=== PATIENT | male | born 1935 | race Caucasian/White ===

== ENCOUNTER → 2017-04-15 | Outpatient (CLI) | payer MEDICARE, BC ==
[2016-03-12 12:47] VITALS: BP 110/55
[~2017-04-15] MED LIST: CIPRO500 M1 PO; CRESTOR 10MG10 MG PO; DAILY VITAMIN1 EAC3 PO; PLAVIX 75MG TAB75 MG PO; PROTONIX20 M1 PO; RAMIPRIL10 MG PO; TYLENOL 325MG325 MG PO; XARELTO10 MG PO
== END ==
LOC: RAD 16:24
DX: N49.2 Inflammatory disorders of scrotum (principal); N50.3 Cyst of epididymis

== ENCOUNTER → 2017-05-19 | Outpatient (CLI) | payer MEDICARE, BC ==
[2016-03-12 12:47] VITALS: BP 110/55
== END ==
LOC: LAB 14:36
DX: I10 Essential (primary) hypertension (principal); I49.3 Ventricular premature depolarization; I48.92 Unspecified atrial flutter; I47.2 Ventricular tachycardia; R00.1 Bradycardia, unspecified; Z95.0 Presence of cardiac pacemaker

== ENCOUNTER → 2017-05-27 | Outpatient (CLI) | payer MEDICARE, BC ==
[2016-03-12 12:47] VITALS: BP 110/55
== END ==
LOC: RAD 14:54
DX: R06.09 Other forms of dyspnea (principal); R53.83 Other fatigue

== ENCOUNTER → 2017-07-05 | Outpatient (CLI) | payer MEDICARE, BC ==
[2016-03-12 12:47] VITALS: BP 110/55
== END ==
LOC: LAB 09:54
DX: I49.3 Ventricular premature depolarization (principal)

== ENCOUNTER → 2017-07-15 | Outpatient (CLI) | payer MEDICARE, BC ==
[2016-03-12 12:47] VITALS: BP 110/55
[2017-07-15 08:25] LABS: BUN/CREATININE RATIO 28.2 (6.0-26.0); CALCIUM 9.5 mg/dL (8.4-10.2); POTASSIUM 4.7 mmol/L (3.6-5.0)
== END ==
LOC: LAB 08:01
DX: I42.8 Other cardiomyopathies (principal); I10 Essential (primary) hypertension; I49.3 Ventricular premature depolarization; I48.92 Unspecified atrial flutter; I48.2 Chronic atrial fibrillation; Z95.810 Presence of automatic (implantable) cardiac defibrillator

== ENCOUNTER → 2017-09-14 | Outpatient (CLI) | payer MEDICARE, BC ==
[2016-03-12 12:47] VITALS: BP 110/55
[2017-09-14 07:59] LABS: ALBUMIN 4.2 g/dL (3.5-5.0); DIRECT BILIRUBIN 0.5 mg/dL (0.0-0.4); TOTAL BILIRUBIN 1.1 mg/dL (0.2-1.3); TOTAL PROTEIN 7.2 g/dL (6.3-8.2)
== END ==
LOC: LAB 07:28
PROVIDERS: Family Medicine
DX: I10 Essential (primary) hypertension (principal); H61.22 Impacted cerumen, left ear; I48.91 Unspecified atrial fibrillation; M19.071 Primary osteoarthritis, right ankle and foot; I70.0 Atherosclerosis of aorta

== ENCOUNTER → 2018-03-02 | Outpatient (CLI) | payer MEDICARE, BC ==
[2016-03-12 12:47] VITALS: BP 110/55
== END ==
LOC: RAD 09:34
DX: M43.6 Torticollis (principal); M25.512 Pain in left shoulder; M1A.0790 Idiopathic chronic gout, unspecified ankle and foot, without tophus (tophi); I42.0 Dilated cardiomyopathy

== ENCOUNTER 2018-04-06 15:30 | Outpatient (RCR) | payer MEDICARE, BC ==
[2016-03-12 12:47] VITALS: BP 110/55
== END 2018-04-06 16:00 | disposition home or self-care (01) ==
LOC: PT 15:30
DX: M25.512 Pain in left shoulder (principal)
CPT/HCPCS: G8978-GP; G8979-GP

== ENCOUNTER → 2018-05-27 | Outpatient (CLI) | payer MEDICARE, BC ==
[2016-03-12 12:47] VITALS: BP 110/55
[2018-05-27 20:46] LABS: EOS # 0.3 (0.04-0.40); HEMATOCRIT 36.3 % (42.0-52.0); HEMOGLOBIN 12.7 g/dL (13.5-18.0); LYMPH# 1.6 (1.50-4.00); MEAN CELL VOLUME 91 fl (78-100); MEAN CORPUSCULAR HEMOGLOBIN 32 pg (27-31); MEAN CORPUSCULAR HGB CONC 35 g/dL (33-37); MEAN PLATELET VOLUME 10.1 fl (7.4-10.4); MONO # 0.6 (0.20-0.80); NEU # 3.1 (1.40-6.50); PLATELET COUNT 243 K/mm3 (130-400); RED BLOOD COUNT 4.01 M/mm3 (4.20-5.60); RED CELL DISTRIBUTION WIDTH 14.4 % (11.5-14.5); WHITE BLOOD COUNT 5.7 K/mm3 (4.8-10.8)
[2018-05-27 23:50] LABS: ALBUMIN 4.3 g/dL (3.5-5.0); CALCIUM 9.2 mg/dL (8.4-10.2); POTASSIUM 4.5 mmol/L (3.6-5.0); TOTAL BILIRUBIN 1.3 mg/dL (0.2-1.3); TOTAL PROTEIN 6.8 g/dL (6.3-8.2)
[2018-05-31 06:40] LABS: ERYTHROCYTE SEDIMENTATION RATE 14 mm/hr (0-20)
== END ==
LOC: LAB 18:16
PROVIDERS: Internal Medicine
DX: I50.20 Unspecified systolic (congestive) heart failure (principal); D64.9 Anemia, unspecified

== ENCOUNTER → 2018-05-31 | Outpatient (CLI) | payer MEDICARE, BC ==
[2016-03-12 12:47] VITALS: BP 110/55
[2018-05-31 11:54] LABS: CALCIUM 9.1 mg/dL (8.4-10.2); POTASSIUM 4.8 mmol/L (3.6-5.0)
== END ==
LOC: LAB 11:07
PROVIDERS: Internal Medicine
DX: I50.20 Unspecified systolic (congestive) heart failure (principal)

== ENCOUNTER → 2018-08-03 | Outpatient (CLI) | payer MEDICARE, BC ==
[2016-03-12 12:47] VITALS: BP 110/55
== END ==
LOC: RAD 10:34
DX: M47.812 Spondylosis without myelopathy or radiculopathy, cervical region (principal); M48.02 Spinal stenosis, cervical region; M19.012 Primary osteoarthritis, left shoulder; Z95.9 Presence of cardiac and vascular implant and graft, unspecified

== ENCOUNTER → 2018-09-29 | Outpatient (CLI) | payer MEDICARE, BC ==
[2016-03-12 12:47] VITALS: BP 110/55
[2018-09-29 10:24] LABS: ALBUMIN 4.4 g/dL (3.5-5.0); DIRECT BILIRUBIN 0.3 mg/dL (0.0-0.4); TOTAL BILIRUBIN 1.1 mg/dL (0.2-1.3); TOTAL PROTEIN 7.2 g/dL (6.3-8.2)
== END ==
LOC: LAB 09:52
PROVIDERS: Family Medicine
DX: I25.10 Atherosclerotic heart disease of native coronary artery without angina pectoris (principal); I70.0 Atherosclerosis of aorta

== ENCOUNTER → 2018-10-10 | Outpatient (CLI) | payer MEDICARE, BC ==
[2016-03-12 12:47] VITALS: BP 110/55
[2018-10-10 11:47] LABS: EOS # 0.2 (0.04-0.40); EOS % 2.6 % (0.0-4.0); HEMATOCRIT 39.7 % (42.0-52.0); HEMOGLOBIN 13.7 g/dL (13.5-18.0); LYMPH# 1.1 (1.50-4.00); MEAN CELL VOLUME 89 fl (78-100); MEAN CORPUSCULAR HEMOGLOBIN 31 pg (27-31); MEAN CORPUSCULAR HGB CONC 35 g/dL (33-37); MEAN PLATELET VOLUME 9.8 fl (7.4-10.4); MONO # 0.7 (0.20-0.80); NEU # 3.9 (1.40-6.50); PLATELET COUNT 239 K/mm3 (130-400); RED BLOOD COUNT 4.44 M/mm3 (4.20-5.60); RED CELL DISTRIBUTION WIDTH 14.1 % (11.5-14.5); WHITE BLOOD COUNT 5.9 K/mm3 (4.8-10.8)
[2018-10-10 12:49] LABS: ERYTHROCYTE SEDIMENTATION RATE 8 mm/hr (0-20)
== END ==
LOC: LAB 11:33
PROVIDERS: Internal Medicine
DX: I50.20 Unspecified systolic (congestive) heart failure (principal)

== ENCOUNTER → 2018-10-11 | Outpatient (CLI) | payer MEDICARE, BC ==
[2016-03-12 12:47] VITALS: BP 110/55
[2018-10-11 10:08] LABS: ALBUMIN 4.9 g/dL (3.5-5.0); CALCIUM 9.8 mg/dL (8.4-10.2); POTASSIUM 4.7 mmol/L (3.6-5.0); TOTAL BILIRUBIN 2.3 mg/dL (0.2-1.3); TOTAL PROTEIN 8.2 g/dL (6.3-8.2)
== END ==
LOC: RAD 09:18
PROVIDERS: Internal Medicine
DX: I50.20 Unspecified systolic (congestive) heart failure (principal); I25.10 Atherosclerotic heart disease of native coronary artery without angina pectoris; R06.02 Shortness of breath; Z95.9 Presence of cardiac and vascular implant and graft, unspecified

== ENCOUNTER → 2018-10-27 | Outpatient (CLI) | payer MEDICARE, BC ==
[2016-03-12 12:47] VITALS: BP 110/55
[2018-10-27 14:03] LABS: D-DIMER 1.64 mg/L FEU (0.15-0.50)
== END ==
LOC: LAB 13:25 → RAD 13:25
PROVIDERS: Family Medicine
DX: R06.09 Other forms of dyspnea (principal); R79.1 Abnormal coagulation profile
CPT/HCPCS: Q9967

== ENCOUNTER → 2019-02-09 | Outpatient (CLI) | payer MEDICARE, BC ==
[2016-03-12 12:47] VITALS: BP 110/55
[2019-02-09 08:45] LABS: POTASSIUM 4.7 mmol/L (3.5-5.1)
[2019-02-09 09:14] LABS: HEMATOCRIT 40.6 % (42.0-52.0); HEMOGLOBIN 13.5 g/dL (13.5-18.0); MEAN PLATELET VOLUME 9.8 fl (7.4-10.4); RED BLOOD COUNT 4.48 M/mm3 (4.20-5.60); RED CELL DISTRIBUTION WIDTH 14.5 % (11.5-14.5); WHITE BLOOD COUNT 6.4 K/mm3 (4.8-10.8)
== END ==
LOC: LAB 08:05
PROVIDERS: Internal Medicine Cardiovascular Disease
DX: I48.91 Unspecified atrial fibrillation (principal)

== ENCOUNTER 2019-02-27 11:06 | Emergency (ER) | payer MEDICARE, BC ==
[~2019-02-27] VITALS: Ht 188 cm; Wt 95.5 kg
[~2019-02-27 11:06] MED LIST changes: -CLOPIDOGREL PO; -COZAAR25 M1 PO; -LIPITOR20 M2 PO; -MAG-OX 400400 MG/TAB PO; -SOTALOL HCL120 MG PO; -TOPROL XL 25MG25 MG PO
[2019-02-27 12:25] LABS: PROTHROMBIN TIME 10.3 SECONDS (9.0-12.0)
[2019-02-27] MEDS ORDERED: TOPROL XL 25MG25 MG PO ×2 (14:14→14:15)
[2019-02-27] MEDS ORDERED: LIPITOR20 M2 PO (14:14)
[2019-02-27] MEDS ORDERED: COZAAR25 M1 PO (14:15)
[2019-02-27] MEDS ORDERED: CLOPIDOGREL PO (14:15)
[2019-02-27] MEDS ORDERED: MAG-OX 400400 MG/TAB PO (14:16)
[2019-02-27] MEDS ORDERED: SOTALOL HCL120 MG PO (14:16)
[2019-02-27 14:41] LABS: URINE APPEARANCE CLEAR; URINE BILIRUBIN NEGATIVE (NEGATIVE); URINE COLOR YELLOW; URINE GLUCOSE NEGATIVE (NEGATIVE); URINE KETONE 1+ (NEGATIVE); URINE PROTEIN(semi-quant) TRACE mg/dL (NEGATIVE)
[2019-02-27 14:42] LABS: URINE BLOOD NEGATIVE (NEGATIVE); URINE LEUKOCYTE ESTERASE NEGATIVE (NEGATIVE); URINE NITRATE NEGATIVE (NEGATIVE); URINE UROBILINOGEN NORMAL (NORMAL)
[2019-02-27 16:10] VITALS: BP 120/79
== END 2019-02-27 16:10 | disposition home or self-care (01) ==
LOC: ED 11:06
PROVIDERS: Nurse Practitioner Primary Care
DX: I95.1 Orthostatic hypotension (principal); E86.0 Dehydration; I48.91 Unspecified atrial fibrillation; I25.10 Atherosclerotic heart disease of native coronary artery without angina pectoris; I11.0 Hypertensive heart disease with heart failure; I50.9 Heart failure, unspecified; Z86.73 Personal history of transient ischemic attack (TIA), and cerebral infarction without residual deficits; Z86.19 Personal history of other infectious and parasitic diseases; Z98.890 Other specified postprocedural states; Z95.0 Presence of cardiac pacemaker; Z79.02 Long term (current) use of antithrombotics/antiplatelets; Z79.82 Long term (current) use of aspirin
CPT/HCPCS: J7030; Q9967

== ENCOUNTER → 2019-02-27 | Outpatient (CLI) | payer MEDICARE, BC ==
[~2019-02-27] VITALS: Ht 190.5 cm; Wt 95.5 kg
[~2019-02-27] MED LIST changes: +CLOPIDOGREL PO; +COZAAR25 M1 PO; +LIPITOR20 M2 PO; +MAG-OX 400400 MG/TAB PO; +SOTALOL HCL120 MG PO; +TOPROL XL 25MG25 MG PO
[2019-02-27 09:13] LABS: EOS # 0.2 (0.04-0.40); EOS % 2.3 % (0.0-4.0); HEMATOCRIT 40.3 % (42.0-52.0); HEMOGLOBIN 13.4 g/dL (13.5-18.0); LYMPH# 1.2 (1.50-4.00); MEAN CELL VOLUME 89 fl (78-100); MEAN CORPUSCULAR HEMOGLOBIN 30 pg (27-31); MEAN CORPUSCULAR HGB CONC 33 g/dL (33-37); MEAN PLATELET VOLUME 9.9 fl (7.4-10.4); MONO # 0.8 (0.20-0.80); NEU # 4.4 (1.40-6.50); PLATELET COUNT 266 K/mm3 (130-400); RED BLOOD COUNT 4.53 M/mm3 (4.20-5.60); RED CELL DISTRIBUTION WIDTH 14.4 % (11.5-14.5); WHITE BLOOD COUNT 6.5 K/mm3 (4.8-10.8)
[2019-02-27 09:30] LABS: POTASSIUM 4.4 mmol/L (3.5-5.1); TOTAL BILIRUBIN 1.8 mg/dL (0.2-1.2); TOTAL PROTEIN 6.9 g/dL (6.2-8.1)
[2019-02-27 10:39] VITALS: BP 90/58
== END ==
LOC: RAD 08:31 → LAB 08:31 → AMSURD 08:31
PROVIDERS: Family Medicine
DX: M48.02 Spinal stenosis, cervical region (principal); M47.812 Spondylosis without myelopathy or radiculopathy, cervical region; I70.90 Unspecified atherosclerosis; M89.8X9 Other specified disorders of bone, unspecified site; I50.20 Unspecified systolic (congestive) heart failure; I25.10 Atherosclerotic heart disease of native coronary artery without angina pectoris; Z95.0 Presence of cardiac pacemaker

== ENCOUNTER 2019-04-26 08:00 | Outpatient (RCR) | payer MEDICARE, BC ==
[~2019-04-26 08:00] MED LIST changes: +CLOPIDOGREL PO; +COZAAR25 M1 PO; +LIPITOR20 M2 PO; +MAG-OX 400400 MG/TAB PO; +SOTALOL HCL120 MG PO; +TOPROL XL 25MG25 MG PO
== END 2019-04-26 08:30 | disposition still patient (30) ==
LOC: PT 08:00
DX: M54.6 Pain in thoracic spine (principal); M54.2 Cervicalgia

== ENCOUNTER → 2019-06-09 | Outpatient (CLI) | payer MEDICARE, BC | LOC: RAD 13:13 | DX: R05 Cough (principal); R06.2 Wheezing ==

== ENCOUNTER → 2019-10-10 | Outpatient (CLI) | payer MEDICARE, BC ==
[2019-10-10 09:37] LABS: HEMATOCRIT 45.1 % (42.0-52.0); HEMOGLOBIN 15.1 g/dL (13.5-18.0); MEAN PLATELET VOLUME 9.8 fl (7.4-10.4); RED CELL DISTRIBUTION WIDTH 14.6 % (11.5-14.5)
[2019-10-10 09:49] LABS: POTASSIUM 4.8 mmol/L (3.5-5.1)
[2019-10-10 09:50] LABS: ALBUMIN 4.3 g/dL (3.4-4.8)
[2019-10-10 09:51] LABS: CALCIUM 9.9 mg/dL (8.3-10.5)
[2019-10-10 09:52] LABS: TOTAL PROTEIN 7.2 g/dL (6.2-8.1)
== END ==
LOC: LAB 09:09
PROVIDERS: Family Medicine
DX: I42.0 Dilated cardiomyopathy (principal); I70.0 Atherosclerosis of aorta

== ENCOUNTER → 2020-02-12 | Outpatient (CLI) | payer MEDICARE, BC ==
[2020-02-12 15:09] LABS: POTASSIUM 4.7 mmol/L (3.5-5.1)
[2020-02-12 15:10] LABS: CALCIUM 9.2 mg/dL (8.3-10.5)
== END ==
LOC: LAB 14:26
PROVIDERS: Internal Medicine Cardiovascular Disease
DX: I48.4 Atypical atrial flutter (principal)

== ENCOUNTER → 2020-02-26 | Outpatient (CLI) | payer MEDICARE, BC | LOC: LAB 09:54 | DX: Z01.818 Encounter for other preprocedural examination (principal); Z11.59 Encounter for screening for other viral diseases; I48.4 Atypical atrial flutter; I10 Essential (primary) hypertension; I47.2 Ventricular tachycardia ==

== ENCOUNTER → 2020-03-18 | Outpatient (CLI) | payer MEDICARE, BC ==
[2020-03-18 09:35] LABS: ALBUMIN 4.4 g/dL (3.4-4.8)
[2020-03-18 09:38] LABS: TOTAL PROTEIN 7.1 g/dL (6.2-8.1)
[2020-03-18 09:44] LABS: DIRECT BILIRUBIN 0.4 mg/dL (0.0-0.5)
== END ==
LOC: LAB 09:02
PROVIDERS: Family Medicine
DX: I48.91 Unspecified atrial fibrillation (principal); I49.3 Ventricular premature depolarization; Z95.810 Presence of automatic (implantable) cardiac defibrillator

== ENCOUNTER 2020-05-09 08:45 | Outpatient (RCR) | payer MEDICARE, BC | END 2020-05-21 | disposition still patient (30) | LOC: PT | DX: S16.1XXA Strain of muscle, fascia and tendon at neck level, initial encounter (principal); S29.012A Strain of muscle and tendon of back wall of thorax, initial encounter; M54.2 Cervicalgia ==

== ENCOUNTER 2020-09-13 10:02 | Emergency (ER) | payer MEDICARE, BC ==
[2020-09-13 11:24] LABS: HEMATOCRIT 36.9 % (42.0-52.0); HEMOGLOBIN 12.4 g/dL (13.5-18.0); MEAN CELL VOLUME 89 fl (78-100); MEAN CORPUSCULAR HEMOGLOBIN 30 pg (27-31); MEAN CORPUSCULAR HGB CONC 34 g/dL (33-37); MEAN PLATELET VOLUME 9.1 fl (7.4-10.4); PLATELET COUNT 141 K/mm3 (130-400); RED BLOOD COUNT 4.13 M/mm3 (4.20-5.60); RED CELL DISTRIBUTION WIDTH 14.7 % (11.5-14.5); WHITE BLOOD COUNT 2.9 K/mm3 (4.8-10.8)
[2020-09-13 11:44] LABS: POTASSIUM 4.5 mmol/L (3.5-5.1); SODIUM 131 mmol/L (136-145)
[2020-09-13 11:45] LABS: ALBUMIN 4.1 g/dL (3.4-4.8); CALCIUM 8.8 mg/dL (8.3-10.5)
[2020-09-13 11:47] LABS: GLUCOSE 93 mg/dL (75-110); TOTAL PROTEIN 6.7 g/dL (6.2-8.1)
[2020-09-13 11:48] LABS: CARBON DIOXIDE 22 mmol/L (23-31)
[2020-09-13 11:52] LABS: AST-SGOT 26 U/L (5-34)
[2020-09-13 11:54] LABS: ALT/SGPT 28 U/L (0-55)
[2020-09-13 11:56] LABS: BAND 3 % (0-10); D-DIMER 1.63 mg/L FEU (0.15-0.50); LYMPHOCYTE 14 % (20-51); MONOCYTE 12 % (3-10); NEUTROPHILS 70 % (42-75); OVALOCYTES 1+
[2020-09-13 12:05] LABS: TROPONIN-I < 0.03 ng/mL (<0.030)
[2020-09-13 12:27] LABS: ERYTHROCYTE SEDIMENTATION RATE 16 mm/hr (0-20)
[2020-09-13 13:34] LABS: URINE APPEARANCE CLEAR; URINE COLOR YELLOW; URINE PROTEIN(semi-quant) TRACE mg/dL (NEGATIVE)
[2020-09-13 13:35] LABS: URINE BILIRUBIN NEGATIVE (NEGATIVE); URINE BLOOD NEGATIVE (NEGATIVE); URINE GLUCOSE NEGATIVE (NEGATIVE); URINE KETONE NORM (NEGATIVE); URINE WBC 0-1 /hpf (0-3)
[2020-09-13 13:36] LABS: URINE MUCUS PRESENT (NOT PRESENT)
[2020-09-13 13:37] LABS: URINE LEUKOCYTE ESTERASE NEGATIVE (NEGATIVE); URINE NITRATE NEGATIVE (NEGATIVE); URINE UROBILINOGEN NORMAL (NORMAL)
[2020-09-13 15:40] VITALS: BP 136/67
== END 2020-09-13 15:15 | disposition home or self-care (01) ==
LOC: ED 10:02
PROVIDERS: Physician Assistant
DX: U07.1 COVID-19 (principal); I48.91 Unspecified atrial fibrillation; I50.9 Heart failure, unspecified; E78.5 Hyperlipidemia, unspecified; Z95.0 Presence of cardiac pacemaker; Z79.02 Long term (current) use of antithrombotics/antiplatelets
CPT/HCPCS: Q9967

== ENCOUNTER → 2020-10-11 | Outpatient (CLI) | payer MEDICARE, BC ==
[2020-09-13 15:40] VITALS: BP 136/67
[2020-10-11 11:12] LABS: ALBUMIN 4.2 g/dL (3.4-4.8)
[2020-10-11 11:17] LABS: TOTAL BILIRUBIN 0.6 mg/dL (0.2-1.2)
[2020-10-11 11:20] LABS: DIRECT BILIRUBIN 0.2 mg/dL (0.0-0.5)
== END ==
LOC: LAB 10:45
PROVIDERS: Family Medicine
DX: E78.00 Pure hypercholesterolemia, unspecified (principal)

== ENCOUNTER → 2021-01-23 | Outpatient (CLI) | payer MEDICARE, BC ==
[2021-01-23 07:50] LABS: ALBUMIN 4.3 g/dL (3.4-4.8)
[2021-01-23 07:51] LABS: POTASSIUM 4.5 mmol/L (3.5-5.1)
[2021-01-23 07:52] LABS: CALCIUM 9.2 mg/dL (8.3-10.5)
[2021-01-23 07:53] LABS: TOTAL PROTEIN 7.1 g/dL (6.2-8.1)
[2021-01-23 07:55] LABS: TOTAL BILIRUBIN 1.2 mg/dL (0.2-1.2)
[2021-01-23 08:00] LABS: MAGNESIUM 2.06 mg/dL (1.60-2.60)
== END ==
LOC: LAB 07:27
PROVIDERS: Family Medicine
DX: I10 Essential (primary) hypertension (principal)

== ENCOUNTER → 2021-01-29 | Outpatient (CLI) | payer MEDICARE, BC | LOC: LAB 09:26 | DX: Z12.5 Encounter for screening for malignant neoplasm of prostate (principal); Z80.42 Family history of malignant neoplasm of prostate ==

== ENCOUNTER → 2021-01-30 | Outpatient (CLI) | payer MEDICARE, BC | LOC: MAMMO 10:00 | DX: Z00.00 Encounter for general adult medical examination without abnormal findings (principal); Z13.820 Encounter for screening for osteoporosis; Z86.010 Personal history of colon polyps ==

== ENCOUNTER → 2021-02-13 | Day surgery (SDC) | payer MEDICARE, BC | LOC: MSO 07:26 | DX: Z12.11 Encounter for screening for malignant neoplasm of colon (principal); D12.2 Benign neoplasm of ascending colon; D12.0 Benign neoplasm of cecum; D12.3 Benign neoplasm of transverse colon; K57.30 Diverticulosis of large intestine without perforation or abscess without bleeding; I10 Essential (primary) hypertension; I48.91 Unspecified atrial fibrillation; Z95.0 Presence of cardiac pacemaker; Z79.899 Other long term (current) drug therapy | CPT/HCPCS: 00811; J2704; J7120 ==

== ENCOUNTER → 2021-04-22 | Outpatient (CLI) | payer MEDICARE, BC ==
[2021-04-22 11:10] LABS: ALBUMIN 4.5 g/dL (3.4-4.8); POTASSIUM 4.5 mmol/L (3.5-5.1)
[2021-04-22 11:11] LABS: CALCIUM 9.7 mg/dL (8.3-10.5)
[2021-04-22 11:12] LABS: TOTAL PROTEIN 7.1 g/dL (6.2-8.1)
[2021-04-22 11:14] LABS: TOTAL BILIRUBIN 1.8 mg/dL (0.2-1.2)
[2021-04-22 11:28] LABS: D-DIMER 0.97 mg/L FEU (0.15-0.50)
[2021-04-22 11:39] LABS: ERYTHROCYTE SEDIMENTATION RATE 10 mm/hr (0-20)
[2021-04-22 13:56] LABS: BASO # 0.04 (0.02-0.10); EOS # 0.06 (0.04-0.40); EOS % 1.1 % (0.0-4.0); HEMATOCRIT 38.6 % (42.0-52.0); HEMOGLOBIN 13.5 g/dL (13.5-18.0); LYMPH# 0.99 (1.50-4.00); MEAN CELL VOLUME 88 fl (78-100); MEAN CORPUSCULAR HEMOGLOBIN 31 pg (27-31); MEAN CORPUSCULAR HGB CONC 35 g/dL (33-37); MONO # 0.65 (0.20-0.80); NEU # 3.59 (1.40-6.50); PLATELET COUNT 205 K/mm3 (130-400); RED BLOOD COUNT 4.39 M/mm3 (4.20-5.60); RED CELL DISTRIBUTION WIDTH 13.8 % (11.5-14.5); WHITE BLOOD COUNT 5.4 K/mm3 (4.8-10.8)
== END ==
LOC: LAB 10:25
PROVIDERS: Internal Medicine
DX: I51.7 Cardiomegaly (principal); Z95.0 Presence of cardiac pacemaker; Z86.79 Personal history of other diseases of the circulatory system
CPT/HCPCS: Q9967

== ENCOUNTER → 2021-04-28 | Outpatient (CLI) | payer MEDICARE, BC ==
[2021-04-28 14:27] LABS: POTASSIUM 4.6 mmol/L (3.5-5.1)
[2021-04-28 14:28] LABS: CALCIUM 9.5 mg/dL (8.3-10.5)
== END ==
LOC: LAB 13:56
PROVIDERS: Family Medicine
DX: E87.1 Hypo-osmolality and hyponatremia (principal); R06.00 Dyspnea, unspecified; Z86.79 Personal history of other diseases of the circulatory system

== ENCOUNTER → 2021-06-24 | Outpatient (CLI) | payer MEDICARE, BC ==
[2021-06-24 11:51] LABS: POTASSIUM 4.9 mmol/L (3.5-5.1)
[2021-06-24 11:52] LABS: CALCIUM 9.9 mg/dL (8.3-10.5)
[2021-06-24 11:59] LABS: MAGNESIUM 1.99 mg/dL (1.60-2.60)
== END ==
LOC: AMSURD 11:10
PROVIDERS: Internal Medicine Cardiovascular Disease
DX: I49.3 Ventricular premature depolarization (principal); I47.2 Ventricular tachycardia; I48.92 Unspecified atrial flutter; Z95.810 Presence of automatic (implantable) cardiac defibrillator

== ENCOUNTER → 2021-06-26 | Outpatient (CLI) | payer MEDICARE, BC ==
[2021-06-26 11:15] LABS: POTASSIUM 4.8 mmol/L (3.5-5.1)
[2021-06-26 11:16] LABS: CALCIUM 9.7 mg/dL (8.3-10.5)
[2021-06-26 11:23] LABS: MAGNESIUM 1.93 mg/dL (1.60-2.60)
== END ==
LOC: LAB 10:20 → AMSURD 10:20
DX: I49.3 Ventricular premature depolarization (principal); I47.2 Ventricular tachycardia; I48.92 Unspecified atrial flutter; Z95.810 Presence of automatic (implantable) cardiac defibrillator

== ENCOUNTER 2021-09-25 13:41 | Outpatient (RCR) | payer MEDICARE, BC | END 2021-09-26 23:59 | LOC: PT 13:41 | DX: M62.81 Muscle weakness (generalized) (principal) ==

== ENCOUNTER → 2021-10-21 | Outpatient (CLI) | payer MEDICARE, BC ==
[2021-10-21 09:04] LABS: ALBUMIN 4.2 g/dL (3.4-4.8)
[2021-10-21 09:09] LABS: TOTAL BILIRUBIN 1.2 mg/dL (0.2-1.2)
[2021-10-21 09:13] LABS: DIRECT BILIRUBIN 0.4 mg/dL (0.0-0.5)
== END ==
LOC: LAB 08:37
PROVIDERS: Family Medicine
DX: I70.0 Atherosclerosis of aorta (principal)

== ENCOUNTER 2021-10-28 09:27 | Outpatient (RCR) | payer MEDICARE, BC | END 2021-11-24 | disposition home or self-care (01) | LOC: PT | DX: M62.81 Muscle weakness (generalized) (principal) ==

== ENCOUNTER → 2021-11-06 | Outpatient (CLI) | payer MEDICARE, BC | LOC: LAB 08:14 | DX: Z20.822 Contact with and (suspected) exposure to COVID-19 (principal) ==

== ENCOUNTER → 2021-11-13 | Outpatient (CLI) | payer MEDICARE, BC | LOC: LAB 13:34 | DX: Z20.822 Contact with and (suspected) exposure to COVID-19 (principal) ==

== ENCOUNTER → 2022-01-30 | Outpatient (CLI) | payer MEDICARE, BC ==
[2022-01-30 09:48] LABS: BASO # 0.04 K/mm3 (0.02-0.10); EOS # 0.34 K/mm3 (0.04-0.40); HEMATOCRIT 37.5 % (42.0-52.0); HEMOGLOBIN 12.5 g/dL (13.5-18.0); LYMPH# 1.08 K/mm3 (1.50-4.00); MEAN CELL VOLUME 94 fl (78-100); MEAN CORPUSCULAR HEMOGLOBIN 31 pg (27-31); MEAN CORPUSCULAR HGB CONC 33 g/dL (33-37); MEAN PLATELET VOLUME 9.6 fl (7.4-10.4); MONO # 0.65 K/mm3 (0.20-0.80); NEU # 3.57 K/mm3 (1.40-6.50); PLATELET COUNT 184 K/mm3 (130-400); RED CELL DISTRIBUTION WIDTH 14.1 % (11.5-14.5); WHITE BLOOD COUNT 5.7 K/mm3 (4.8-10.8)
[2022-01-30 09:54] LABS: ALBUMIN 4.2 g/dL (3.4-4.8); POTASSIUM 4.5 mmol/L (3.5-5.1)
[2022-01-30 09:55] LABS: CALCIUM 9.3 mg/dL (8.3-10.5)
[2022-01-30 09:56] LABS: TOTAL PROTEIN 6.9 g/dL (6.2-8.1)
[2022-01-30 10:03] LABS: MAGNESIUM 1.98 mg/dL (1.60-2.60)
== END ==
LOC: LAB 09:05
PROVIDERS: Family Medicine
DX: Z00.00 Encounter for general adult medical examination without abnormal findings (principal); M41.86 Other forms of scoliosis, lumbar region; M51.36 Other intervertebral disc degeneration, lumbar region; I70.0 Atherosclerosis of aorta; I42.9 Cardiomyopathy, unspecified; M1A.00X0 Idiopathic chronic gout, unspecified site, without tophus (tophi); E78.00 Pure hypercholesterolemia, unspecified; I10 Essential (primary) hypertension; M54.59 Other low back pain; Z98.890 Other specified postprocedural states; Z86.79 Personal history of other diseases of the circulatory system

== ENCOUNTER → 2022-02-03 | Outpatient (CLI) | payer MEDICARE, BC | LOC: LAB 09:28 | DX: Z13.9 Encounter for screening, unspecified (principal); D64.9 Anemia, unspecified ==

== ENCOUNTER → 2022-03-27 | Outpatient (CLI) | payer MEDICARE, BC | LOC: LAB 11:43 | DX: M19.072 Primary osteoarthritis, left ankle and foot (principal); M19.071 Primary osteoarthritis, right ankle and foot ==

== ENCOUNTER 2022-05-26 09:06 | Outpatient (RCR) | payer MEDICARE, BC | END 2022-05-27 | LOC: PT | DX: M51.36 Other intervertebral disc degeneration, lumbar region (principal); M48.061 Spinal stenosis, lumbar region without neurogenic claudication ==

== ENCOUNTER → 2022-05-27 | Outpatient (CLI) | payer MEDICARE, BC | LOC: LAB 11:44 | DX: M1A.0710 Idiopathic chronic gout, right ankle and foot, without tophus (tophi) (principal); M54.9 Dorsalgia, unspecified ==

== ENCOUNTER 2022-05-28 09:11 | Outpatient (RCR) | payer MEDICARE, BC | END 2022-06-26 | disposition still patient (30) | LOC: PT | DX: M51.36 Other intervertebral disc degeneration, lumbar region (principal); M48.061 Spinal stenosis, lumbar region without neurogenic claudication ==

== ENCOUNTER → 2022-12-16 | Outpatient (CLI) | payer MEDICARE, BC ==
[2022-12-16 15:24] LABS: BASO # 0.03 K/mm3 (0.02-0.10); EOS # 0.19 K/mm3 (0.04-0.40); EOS % 3.4 % (0.0-4.0); HEMATOCRIT 37.8 % (42.0-52.0); HEMOGLOBIN 12.5 g/dL (13.5-18.0); LYMPH# 1.51 K/mm3 (1.50-4.00); MEAN CELL VOLUME 94 fl (78-100); MEAN CORPUSCULAR HEMOGLOBIN 31 pg (27-31); MEAN CORPUSCULAR HGB CONC 33 g/dL (33-37); MEAN PLATELET VOLUME 9.3 fl (7.4-10.4); MONO # 0.55 K/mm3 (0.20-0.80); PLATELET COUNT 214 K/mm3 (130-400); RED BLOOD COUNT 4.04 M/mm3 (4.20-5.60); RED CELL DISTRIBUTION WIDTH 14.2 % (11.5-14.5); WHITE BLOOD COUNT 5.6 K/mm3 (4.8-10.8)
[2022-12-16 15:30] LABS: ALBUMIN 4.2 g/dL (3.4-4.8); POTASSIUM 4.3 mmol/L (3.5-5.1)
[2022-12-16 15:31] LABS: CALCIUM 9.8 mg/dL (8.3-10.5)
[2022-12-16 15:32] LABS: TOTAL PROTEIN 6.5 g/dL (6.2-8.1)
[2022-12-16 15:34] LABS: TOTAL BILIRUBIN 0.8 mg/dL (0.2-1.2)
[2022-12-16 22:52] LABS: T3 FREE <1.1 pg/mL (1.7-3.7); TESTOSTERONE 174 ng/dL (221-716)
== END ==
LOC: LAB 14:59
PROVIDERS: Family Medicine
DX: R53.83 Other fatigue (principal)

== ENCOUNTER → 2023-01-13 | Outpatient (CLI) | payer MEDICARE, BC | LOC: LAB 10:43 | DX: Z12.5 Encounter for screening for malignant neoplasm of prostate (principal); I48.91 Unspecified atrial fibrillation ==

== ENCOUNTER → 2023-01-14 | Outpatient (CLI) | payer MEDICARE, BC | LOC: RAD 11:42 | DX: M51.35 Other intervertebral disc degeneration, thoracolumbar region (principal); M41.85 Other forms of scoliosis, thoracolumbar region; R10.84 Generalized abdominal pain ==

== ENCOUNTER 2023-07-08 15:59 | Emergency (ER) | payer MEDICARE, BC ==
[~2023-07-08] VITALS: Ht 188 cm; Wt 100.0 kg
[2023-07-08] MEDS ORDERED: SENNA-GEN8.6 MG (16:07)
[2023-07-08] MEDS ORDERED: ALLOPURINOL300 M1 PO (16:07)
[2023-07-08 16:43] VITALS: BP 134/91
== END 2023-07-08 16:48 | disposition home or self-care (01) ==
LOC: ED 15:59
DX: R04.0 Epistaxis (principal)

== ENCOUNTER → 2023-10-25 | Outpatient (CLI) | payer MEDICARE, BC ==
[~2023-10-25] MED LIST changes: +ALLOPURINOL300 M1 PO; +SENNA-GEN8.6 MG
[2023-10-25 08:41] LABS: BASO # 0.02 K/mm3 (0.02-0.10); EOS # 0.26 K/mm3 (0.04-0.40); EOS % 4.8 % (0.0-4.0); HEMATOCRIT 39.2 % (42.0-52.0); HEMOGLOBIN 13.2 g/dL (13.5-18.0); LYMPH# 1.15 K/mm3 (1.50-4.00); MEAN CELL VOLUME 94 fl (78-100); MEAN CORPUSCULAR HEMOGLOBIN 32 pg (27-31); MEAN CORPUSCULAR HGB CONC 34 g/dL (33-37); MEAN PLATELET VOLUME 9.2 fl (7.4-10.4); MONO # 0.53 K/mm3 (0.20-0.80); NEU # 3.42 K/mm3 (1.40-6.50); PLATELET COUNT 227 K/mm3 (130-400); RED BLOOD COUNT 4.18 M/mm3 (4.20-5.60); RED CELL DISTRIBUTION WIDTH 14.4 % (11.5-14.5); WHITE BLOOD COUNT 5.4 K/mm3 (4.8-10.8)
[2023-10-25 08:47] LABS: ALBUMIN 4.3 g/dL (3.4-4.8)
[2023-10-25 08:48] LABS: CALCIUM 9.2 mg/dL (8.3-10.5)
[2023-10-25 08:50] LABS: TOTAL PROTEIN 6.8 g/dL (6.2-8.1)
[2023-10-25 08:51] LABS: TOTAL BILIRUBIN 0.63 mg/dL (0.2-1.2)
[2023-10-25 09:23] LABS: URINE APPEARANCE CLEAR (CLEAR); URINE COLOR YELLOW (YELLOW)
[2023-10-25 09:24] LABS: PH-URINE 5.5 (5.0 - 8.0); URINE BILIRUBIN NEGATIVE (NEGATIVE); URINE BLOOD NEGATIVE (NEGATIVE); URINE GLUCOSE NEGATIVE (NEGATIVE); URINE KETONE NEGATIVE (NEGATIVE); URINE LEUKOCYTE ESTERASE NEGATIVE (NEGATIVE); URINE NITRATE NEGATIVE (NEGATIVE); URINE PROTEIN(semi-quant) NEGATIVE (NEGATIVE); URINE WBC 0-1 /hpf (0-3)
[2023-10-25 09:25] LABS: URINE MUCUS PRESENT (NOT PRESENT)
== END ==
LOC: LAB 08:24
DX: I42.8 Other cardiomyopathies (principal); I10 Essential (primary) hypertension; R79.9 Abnormal finding of blood chemistry, unspecified

== ENCOUNTER → 2023-11-17 | Outpatient (CLI) | payer MEDICARE, BC ==
[2023-11-17 09:06] LABS: CALCIUM 9.8 mg/dL (8.3-10.5)
== END ==
LOC: LAB 08:43
PROVIDERS: Family Medicine
DX: I10 Essential (primary) hypertension (principal)

== ENCOUNTER → 2024-04-01 | Outpatient (CLI) | payer MEDICARE, BC ==
[2024-04-01 07:52] LABS: BASO # 0.03 K/mm3 (0.02-0.10); EOS # 0.26 K/mm3 (0.04-0.40); EOS % 4.5 % (0.0-4.0); HEMATOCRIT 41.4 % (42.0-52.0); HEMOGLOBIN 13.7 g/dL (13.5-18.0); LYMPH# 1.21 K/mm3 (1.50-4.00); MEAN CELL VOLUME 95 fl (78-100); MEAN CORPUSCULAR HEMOGLOBIN 31 pg (27-31); MEAN CORPUSCULAR HGB CONC 33 g/dL (33-37); MEAN PLATELET VOLUME 9.1 fl (7.4-10.4); MONO # 0.52 K/mm3 (0.20-0.80); NEU # 3.68 K/mm3 (1.40-6.50); PLATELET COUNT 205 K/mm3 (130-400); RED BLOOD COUNT 4.38 M/mm3 (4.20-5.60); RED CELL DISTRIBUTION WIDTH 14.1 % (11.5-14.5); WHITE BLOOD COUNT 5.7 K/mm3 (4.8-10.8)
[2024-04-01 08:01] LABS: ALBUMIN 4.2 g/dL (3.4-4.8)
[2024-04-01 08:02] LABS: CALCIUM 9.9 mg/dL (8.3-10.5)
[2024-04-01 08:03] LABS: TOTAL PROTEIN 6.5 g/dL (6.2-8.1)
[2024-04-01 08:05] LABS: TOTAL BILIRUBIN 1.6 mg/dL (0.2-1.2)
== END ==
LOC: LAB 07:36
PROVIDERS: Internal Medicine
DX: I50.42 Chronic combined systolic (congestive) and diastolic (congestive) heart failure (principal)

== ENCOUNTER → 2024-04-10 | Outpatient (CLI) | payer MEDICARE, BC | LOC: LAB 08:29 | DX: Z12.5 Encounter for screening for malignant neoplasm of prostate (principal); E78.2 Mixed hyperlipidemia ==

== ENCOUNTER → 2024-05-16 | Outpatient (CLI) | payer MEDICARE, BC ==
[2024-05-16 12:01] LABS: BASO # 0.02 K/mm3 (0.02-0.10); EOS # 0.23 K/mm3 (0.04-0.40); EOS % 3.5 % (0.0-4.0); HEMATOCRIT 38.9 % (42.0-52.0); HEMOGLOBIN 12.9 g/dL (13.5-18.0); LYMPH# 1.24 K/mm3 (1.50-4.00); MEAN CELL VOLUME 95 fl (78-100); MEAN CORPUSCULAR HEMOGLOBIN 31 pg (27-31); MEAN CORPUSCULAR HGB CONC 33 g/dL (33-37); MEAN PLATELET VOLUME 9.3 fl (7.4-10.4); MONO # 0.69 K/mm3 (0.20-0.80); NEU # 4.47 K/mm3 (1.40-6.50); PLATELET COUNT 210 K/mm3 (130-400); RED BLOOD COUNT 4.11 M/mm3 (4.20-5.60); RED CELL DISTRIBUTION WIDTH 14.6 % (11.5-14.5); WHITE BLOOD COUNT 6.7 K/mm3 (4.8-10.8)
[2024-05-16 12:07] LABS: CALCIUM 9.7 mg/dL (8.3-10.5)
== END ==
LOC: LAB 11:48
PROVIDERS: Family Medicine
DX: D64.9 Anemia, unspecified (principal); E87.1 Hypo-osmolality and hyponatremia

== ENCOUNTER 2024-06-09 12:44 | Observation (INO) | payer MEDICARE, BC ==
[~2024-06-09] VITALS: Ht 188 cm; Wt 97.5 kg
[2024-06-09 13:44] LABS: BASO # 0.01 K/mm3 (0.02-0.10); EOS # 0.23 K/mm3 (0.04-0.40); EOS % 3.6 % (0.0-4.0); HEMATOCRIT 40.2 % (42.0-52.0); HEMOGLOBIN 13.5 g/dL (13.5-18.0); MEAN CELL VOLUME 94 fl (78-100); MEAN CORPUSCULAR HEMOGLOBIN 32 pg (27-31); MEAN CORPUSCULAR HGB CONC 34 g/dL (33-37); MEAN PLATELET VOLUME 9.5 fl (7.4-10.4); MONO # 0.55 K/mm3 (0.20-0.80); NEU # 4.39 K/mm3 (1.40-6.50); PLATELET COUNT 231 K/mm3 (130-400); RED BLOOD COUNT 4.27 M/mm3 (4.20-5.60); RED CELL DISTRIBUTION WIDTH 14.4 % (11.5-14.5); WHITE BLOOD COUNT 6.4 K/mm3 (4.8-10.8)
[2024-06-09 13:49] LABS: ALBUMIN 4.3 g/dL (3.4-4.8)
[2024-06-09 13:50] LABS: SODIUM 138 mmol/L (136-145)
[2024-06-09 13:51] LABS: CALCIUM 9.8 mg/dL (8.3-10.5)
[2024-06-09 13:52] LABS: GLUCOSE 106 mg/dL (75-110)
[2024-06-09 13:53] LABS: CARBON DIOXIDE 19 mmol/L (23-31)
[2024-06-09 13:57] LABS: AST-SGOT 20 U/L (5-34); PROTHROMBIN TIME 10.2 SECONDS (9.0-12.0)
[2024-06-09 13:58] LABS: ALT/SGPT 20 U/L (0-55)
[2024-06-09 14:05] LABS: TROPONIN-I < 0.030 ng/mL (0.00-0.033)
[2024-06-09] MEDS ORDERED: Iohexol 350 - 100 ML VIAL IV ONE (14:08)
[2024-06-09] MEDS ORDERED: ALDACTONE 25MG25 MG PO (14:12)
[2024-06-09] MEDS ORDERED: INTRINSI B12-F1 EACH PO (14:13)
[2024-06-09] MEDS ORDERED: OSTERA TABLET1 EACH PO (14:13)
[2024-06-09] MEDS ORDERED: COZAAR25 M1 PO (14:14)
[2024-06-09] MEDS ORDERED: Clopidogrel 75 MG TAB PO ONE (17:00)
[2024-06-09] MEDS ORDERED: Ondansetron 4 MG/2 ML VIAL IV PRN (17:45)
[2024-06-09] MEDS ORDERED: Acetaminophen 500 MG TAB PO PRN (17:45)
[2024-06-09 17:56] VITALS: BP 122/76
[2024-06-09] MEDS ORDERED: NS 1,000 ML IV SCH (18:00)
[2024-06-09 20:50] VITALS: BP 120/81
[2024-06-09] MEDS ORDERED: Sennosides/Docusate 8.6-50 MG TAB PO SCH (21:00)
[2024-06-09] MEDS ORDERED: Losartan 25 MG TAB PO SCH (21:00)
[2024-06-09] MEDS ORDERED: Magnesium Oxide 400 MG TAB PO SCH (21:00)
[2024-06-10 02:23] VITALS: BP 134/82
[2024-06-10 06:07] VITALS: BP 136/88
[2024-06-10 07:26] LABS: BASO # 0.01 K/mm3 (0.02-0.10); EOS # 0.23 K/mm3 (0.04-0.40); EOS % 4.3 % (0.0-4.0); HEMATOCRIT 35.5 % (42.0-52.0); LYMPH# 1.27 K/mm3 (1.50-4.00); MEAN CELL VOLUME 94 fl (78-100); MEAN CORPUSCULAR HEMOGLOBIN 32 pg (27-31); MEAN CORPUSCULAR HGB CONC 34 g/dL (33-37); MEAN PLATELET VOLUME 9.5 fl (7.4-10.4); MONO # 0.48 K/mm3 (0.20-0.80); NEU # 3.39 K/mm3 (1.40-6.50); PLATELET COUNT 176 K/mm3 (130-400); RED BLOOD COUNT 3.77 M/mm3 (4.20-5.60); RED CELL DISTRIBUTION WIDTH 14.4 % (11.5-14.5); WHITE BLOOD COUNT 5.4 K/mm3 (4.8-10.8)
[2024-06-10 07:35] LABS: CALCIUM 9.5 mg/dL (8.3-10.5)
[2024-06-10 07:36] LABS: ALBUMIN 3.7 g/dL (3.4-4.8)
[2024-06-10 07:40] LABS: TOTAL BILIRUBIN 0.9 mg/dL (0.2-1.2)
[2024-06-10] MEDS ORDERED: Spironolactone 12.5 MG TAB PO SCH (09:00)
[2024-06-10] MEDS ORDERED: Allopurinol 300 MG TAB PO SCH (09:00)
[2024-06-10] MEDS ORDERED: Clopidogrel 75 MG TAB PO SCH (09:00)
[2024-06-10] MEDS ORDERED: Empagliflozin 10 MG TAB PO SCH (09:00)
[2024-06-10 10:22] VITALS: BP 115/71
[2024-06-10] MEDS ORDERED: CLOPIDOGREL PO (12:40)
[2024-06-10] MEDS ORDERED: JARDIANCE10 MG PO (12:43)
[2024-06-10 13:20] VITALS: BP 106/71
== END 2024-06-10 13:12 | disposition home or self-care (01) ==
LOC: ED 12:44 → MED/SURG 17:26
PROVIDERS: ADMIT Family Medicine
DX: G45.9 Transient cerebral ischemic attack, unspecified (principal); I65.22 Occlusion and stenosis of left carotid artery; I48.91 Unspecified atrial fibrillation; R47.1 Dysarthria and anarthria; I65.21 Occlusion and stenosis of right carotid artery; I11.0 Hypertensive heart disease with heart failure; I50.40 Unspecified combined systolic (congestive) and diastolic (congestive) heart failure; Z95.0 Presence of cardiac pacemaker; Z95.818 Presence of other cardiac implants and grafts
CPT/HCPCS: A9270; G0378; J7030; J7120; Q9967

== ENCOUNTER → 2024-07-18 | Outpatient (CLI) | payer MEDICARE, BC ==
[~2024-07-18] MED LIST changes: +ALDACTONE 25MG25 MG PO; +INTRINSI B12-F1 EACH PO; +JARDIANCE10 MG PO; +OSTERA TABLET1 EACH PO
[2024-07-18 10:34] LABS: HEMATOCRIT 37.7 % (42.0-52.0); HEMOGLOBIN 12.5 g/dL (13.5-18.0); MEAN PLATELET VOLUME 8.9 fl (7.4-10.4); RED BLOOD COUNT 3.96 M/mm3 (4.20-5.60); RED CELL DISTRIBUTION WIDTH 14.4 % (11.5-14.5); WHITE BLOOD COUNT 5.8 K/mm3 (4.8-10.8)
[2024-07-18 10:56] LABS: CALCIUM 9.5 mg/dL (8.3-10.5)
[2024-07-18 11:02] LABS: MAGNESIUM 1.88 mg/dL (1.60-2.60)
== END ==
LOC: LAB 10:17
PROVIDERS: Internal Medicine
DX: I48.21 Permanent atrial fibrillation (principal)

== ENCOUNTER → 2024-10-16 | Outpatient (CLI) | payer MEDICARE, BC ==
[2024-10-16 08:54] LABS: BASO # 0.02 K/mm3 (0.02-0.10); EOS # 0.15 K/mm3 (0.04-0.40); EOS % 2.2 % (0.0-4.0); HEMATOCRIT 40.6 % (42.0-52.0); HEMOGLOBIN 13.3 g/dL (13.5-18.0); LYMPH# 1.04 K/mm3 (1.50-4.00); MEAN CELL VOLUME 96 fl (78-100); MEAN CORPUSCULAR HEMOGLOBIN 32 pg (27-31); MEAN CORPUSCULAR HGB CONC 33 g/dL (33-37); MEAN PLATELET VOLUME 9.7 fl (7.4-10.4); MONO # 0.66 K/mm3 (0.20-0.80); NEU # 4.94 K/mm3 (1.40-6.50); PLATELET COUNT 226 K/mm3 (130-400); RED BLOOD COUNT 4.22 M/mm3 (4.20-5.60); RED CELL DISTRIBUTION WIDTH 14.4 % (11.5-14.5); WHITE BLOOD COUNT 6.8 K/mm3 (4.8-10.8)
[2024-10-16 09:00] LABS: CALCIUM 9.7 mg/dL (8.3-10.5)
== END ==
LOC: LAB 08:35
PROVIDERS: Family Medicine
DX: I50.42 Chronic combined systolic (congestive) and diastolic (congestive) heart failure (principal); D64.9 Anemia, unspecified